=== PATIENT | female | born 1950 | race Caucasian/White ===

== ENCOUNTER 2019-05-18 07:02 | Outpatient (CLI) | payer MEDICARE, SELFPAY ==
[2019-05-18 07:16] LABS: Basophils Absolute Auto 0.04 K/mm3 (0.00-0.10); Basophils Percent Auto 0.6 % (0.0-1.0); Eosinophils Absolute Auto 0.19 K/mm3 (0.02-0.50); Eosinophils Percent Auto 2.8 % (1.0-6.0); Hematocrit 38.3 % (35.0-42.0); Immature Granulocyte Absolute 0.02 K/mm3 (0.00-0.00); Immature Granulocyte Percent A 0.3 % (0.0-0.0); Lymphocytes Percent Auto 30.6 % (18.0-42.0); Mean Corpuscular HGB Conc 31.3 g/dL (32.0-36.0); Mean Corpuscular Hemoglobin 27.8 pg (27.0-31.0); Mean Corpuscular Volume 88.7 fL (78.0-102.0); Monocytes Absolute Auto 0.58 K/mm3 (0.10-0.90); Monocytes Percent Auto 8.4 % (2.0-11.0); Neutrophils Absolute Auto 3.9 K/mm3 (1.7-7.2); Neutrophils Percent Auto 57.3 % (50.0-70.0); Platelet Count Result 206 K/mm3 (150-420); Red Blood Count 4.32 M/mm3 (4.20-5.40); Red Cell Distribution Width 12.8 % (11.6-14.4); White Blood Count 6.9 K/mm3 (4.8-10.8)
[2019-05-18 07:17] LABS: Add Urine Microscopic? YES; Appearance Urine Sl Cloudy (Clear); Bilirubin Urine Negative (Negative); Blood Urine Negative (Negative); Color Urine Yellow (Yellow); Glucose Urine UA Negative (Negative); Ketones Urine Negative (Negative); Leukocyte Esterase Ur Trace LEU/UL (Negative); Nitrate Urine Negative (Negative); Protein Urine Negative (Negative); Urobilinogen Urine 0.2 mg/dL (0.2-1.0)
[2019-05-18 07:32] LABS: RBC Urine 0-2 /hpf (0-2); WBC Urine 0-3 /hpf (0-3)
[2019-05-18 07:33] LABS: Bacteria Urine Trace /hpf; Squamous Epithelial Cell Urine Moderate /hpf (Few)
[2019-05-18 08:24] LABS: Albumin Level 3.8 g/dL (3.4-5.0); Anion Gap 12.5 mmol/L (7-16); Blood Urea Nitrogen 31 mg/dL (7-18); Calcium 8.6 mg/dL (8.5-10.1); Carbon Dioxide 28 mmol/L (21-32); Chloride 108 mmol/L (98-108); Estimated Glomerular Filt Rate > 60; Glucose 96 mg/dL (70-99); Osmolality Calculated 304 mOsm/kg (285-295); Potassium 4.5 mmol/L (3.5-5.1); Sodium 144 mmol/L (136-145)
[2019-05-18 08:36] LABS: Alanine Aminotransferase 19 U/L (14-59); Alkaline Phosphatase 79 U/L (46-116); Aspartate Amino Transferase 14 U/L (15-37); Bilirubin,Total 0.2 mg/dL (0.00-1.00); Cholesterol 179 mg/dL (0-200); HDL Direct 47 mg/dL (40-60); LDL Cholesterol Calculated 120 mg/dL (<130); Total Protein 6.7 g/dL (6.4-8.2); Triglycerides 61 mg/dL (0-150)
== END 2019-05-18 07:03 | disposition home or self-care (01) ==
LOC: CHSLAB 07:04
PROVIDERS: PCP Internal Medicine; Visit Provider Internal Medicine
DX: E78.00 Pure hypercholesterolemia, unspecified (principal); I10 Essential (primary) hypertension
CPT/HCPCS: 36415; 80053; 80061; 81001; 85025

== ENCOUNTER 2019-10-09 12:48 | Outpatient (CLI) | payer MEDICARE, BC, SELFPAY ==
[2019-10-09 13:20] VITALS: BP 138/80; PULSE 88; RESP 16; TEMP 36.8; O2SAT 98
[2019-10-09] MEDS: ERTAPENEM 1 GM/NS 50 ML 1 GM/50 ML BAG IVPB (13:46)
[2019-10-09] MEDS: HEPARIN SOD FLUSH 500 UNITS/5 ML SYRINGE IV PUSH (13:49)
--- NOTE | 2019-10-09 14:25 | PC.NURSE ---
Patient tolerated iv ertapenem IV infusion daily for 14 days. This was day #1. No concerns. Educated on medication and midline that is already established. Safe exit of hospital.
== END 2019-10-09 12:49 | disposition home or self-care (01) ==
PROVIDERS: PCP Internal Medicine; Visit Provider Internal Medicine Infectious Disease
DX: A41.9 Sepsis, unspecified organism (principal)
CPT/HCPCS: 96365; J1335

== ENCOUNTER 2019-10-10 12:52 | Outpatient (CLI) | payer MEDICARE, SELFPAY ==
[2019-10-10] MEDS: ERTAPENEM 1 GM/NS 50 ML 1 GM/50 ML BAG IVPB (14:08)
[2019-10-10] MEDS: HEPARIN SOD FLUSH 500 UNITS/5 ML SYRINGE IV PUSH (14:10)
== END 2019-10-10 12:53 | disposition home or self-care (01) ==
PROVIDERS: PCP Internal Medicine
DX: A41.9 Sepsis, unspecified organism (principal)
CPT/HCPCS: 96365; J1335

== ENCOUNTER 2019-10-11 12:41 | Outpatient (CLI) | payer MEDICARE, SELFPAY ==
[2019-10-11] MEDS: HEPARIN SOD FLUSH 500 UNITS/5 ML SYRINGE IV PUSH (13:20)
[2019-10-11] MEDS: ERTAPENEM 1 GM/NS 50 ML 1 GM/50 ML BAG IVPB (13:26)
== END 2019-10-11 12:42 | disposition home or self-care (01) ==
PROVIDERS: PCP Internal Medicine
DX: A41.9 Sepsis, unspecified organism (principal)
CPT/HCPCS: 96365; J1335

== ENCOUNTER 2019-10-12 12:47 | Outpatient (CLI) | payer MEDICARE, SELFPAY ==
[2019-10-12] MEDS: ERTAPENEM 1 GM/NS 50 ML 1 GM/50 ML BAG IVPB (13:10)
[2019-10-12] MEDS: HEPARIN SOD FLUSH 500 UNITS/5 ML SYRINGE IV PUSH (13:45)
== END 2019-10-12 12:48 | disposition home or self-care (01) ==
PROVIDERS: PCP Internal Medicine
DX: Z41.9 Encounter for procedure for purposes other than remedying health state, unspecified (principal)
CPT/HCPCS: 96365; J1335

== ENCOUNTER 2019-10-13 12:41 | Outpatient (CLI) | payer MEDICARE, SELFPAY ==
[2019-10-13] MEDS: ERTAPENEM 1 GM/NS 50 ML 1 GM/50 ML BAG IVPB (13:01)
== END 2019-10-13 12:42 | disposition home or self-care (01) ==
PROVIDERS: PCP Internal Medicine
DX: A41.9 Sepsis, unspecified organism (principal)
CPT/HCPCS: 96365; J1335

== ENCOUNTER 2019-10-14 12:41 | Outpatient (CLI) | payer MEDICARE, SELFPAY ==
[2019-10-14] MEDS: ERTAPENEM 1 GM/NS 50 ML 1 GM/50 ML BAG IVPB (13:09)
[2019-10-14] MEDS: HEPARIN SOD FLUSH 500 UNITS/5 ML SYRINGE IV PUSH (13:10)
[2019-10-14 13:14] VITALS: BP 134/70; PULSE 72; RESP 14; TEMP 36.6; O2SAT 97
--- NOTE | 2019-10-14 15:01 | PC.NURSE ---
1245 Here for IV Ertapenem antibiotic. Midline IV dressing change. Site good. IV Ertapenem administered. Tolerated well. Safe exit of hospital.
== END 2019-10-14 12:42 | disposition home or self-care (01) ==
PROVIDERS: PCP Internal Medicine
DX: A41.9 Sepsis, unspecified organism (principal)
CPT/HCPCS: 96365; J1335

== ENCOUNTER 2019-10-15 12:37 | Outpatient (CLI) | payer MEDICARE, SELFPAY ==
[2019-10-15] MEDS: ERTAPENEM 1 GM/NS 50 ML 1 GM/50 ML BAG IVPB (12:59)
[2019-10-15] MEDS: HEPARIN SOD FLUSH 500 UNITS/5 ML SYRINGE IV PUSH (12:59)
== END 2019-10-15 12:38 | disposition home or self-care (01) ==
LOC: CHSTREATRM 12:40
PROVIDERS: PCP Internal Medicine
DX: A41.9 Sepsis, unspecified organism (principal)
CPT/HCPCS: 96365; J1335

== ENCOUNTER 2019-10-16 12:46 | Outpatient (CLI) | payer MEDICARE, SELFPAY ==
[2019-10-16] MEDS: HEPARIN SOD FLUSH 500 UNITS/5 ML SYRINGE IV PUSH (13:11)
[2019-10-16] MEDS: ERTAPENEM 1 GM/NS 50 ML 1 GM/50 ML BAG IVPB (13:11)
== END 2019-10-16 12:47 | disposition home or self-care (01) ==
PROVIDERS: PCP Internal Medicine
DX: A41.9 Sepsis, unspecified organism (principal)
CPT/HCPCS: 96365; J1335

== ENCOUNTER 2019-10-17 07:31 | Outpatient (CLI) | payer MEDICARE, SELFPAY ==
[2019-10-17] MEDS: HEPARIN SOD FLUSH 500 UNITS/5 ML SYRINGE IV PUSH (12:53)
[2019-10-17] MEDS: ERTAPENEM 1 GM/NS 50 ML 1 GM/50 ML BAG IVPB (12:53)
[2019-10-17 12:54] VITALS: BP 129/80; PULSE 68; RESP 16; TEMP 36.6; O2SAT 97
--- NOTE | 2019-10-17 13:14 | PC.NURSE ---
Tolerated daily IV antibiotic (see MAR) well. No concerns. Midline flushed and intact. Safe exit of hospital.
== END 2019-10-17 07:32 | disposition home or self-care (01) ==
PROVIDERS: PCP Internal Medicine
DX: A41.9 Sepsis, unspecified organism (principal)
CPT/HCPCS: 96365; J1335

== ENCOUNTER 2019-10-18 10:07 | Outpatient (CLI) | payer MEDICARE, SELFPAY ==
[2019-10-18 12:52] VITALS: BP 119/70; PULSE 68; RESP 14; TEMP 36.6; O2SAT 97
[2019-10-18] MEDS: ERTAPENEM 1 GM/NS 50 ML 1 GM/50 ML BAG IVPB (12:52)
[2019-10-18] MEDS: HEPARIN SOD FLUSH 500 UNITS/5 ML SYRINGE IV PUSH (13:21)
--- NOTE | 2019-10-18 13:21 | PC.NURSE ---
Patient here for daily IV antibiotic infusion (SEE MAR). No concerns voiced. Tolerated infusion well. Safe exit of hospital.
== END 2019-10-18 10:08 | disposition home or self-care (01) ==
DX: A41.9 Sepsis, unspecified organism (principal)
CPT/HCPCS: 96365; J1335

== ENCOUNTER 2019-10-19 12:38 | Outpatient (CLI) | payer MEDICARE, SELFPAY ==
[2019-10-19 12:48] VITALS: BP 114/64; PULSE 72; RESP 18; TEMP 36.7
[2019-10-19] MEDS: ERTAPENEM 1 GM/NS 50 ML 1 GM/50 ML BAG IVPB (13:00)
--- NOTE | 2019-10-19 13:49 | PC.NURSE ---
Here for daily IV antibiotic (see MAY). No concerns voiced. Tolerated infusion well. Safe exit of hospita. Call to Dr Arias Infection control to see if can pull midline 10/21/19 after 14 th and last dose of IV antibiotic. They will call us back with answer by .
== END 2019-10-19 12:39 | disposition home or self-care (01) ==
LOC: CHSTREATRM 12:39
PROVIDERS: PCP Internal Medicine; Visit Provider Internal Medicine Infectious Disease
DX: A41.9 Sepsis, unspecified organism (principal)
CPT/HCPCS: 96365; J1335

== ENCOUNTER 2019-10-20 12:38 | Outpatient (CLI) | payer MEDICARE, SELFPAY ==
[2019-10-20] MEDS: ERTAPENEM 1 GM/NS 50 ML 1 GM/50 ML BAG IVPB (13:06)
[2019-10-20] MEDS: HEPARIN SOD FLUSH 500 UNITS/5 ML SYRINGE IV PUSH (13:38)
== END 2019-10-20 12:39 | disposition home or self-care (01) ==
LOC: CHSTREATRM 12:40
PROVIDERS: PCP Internal Medicine; Visit Provider Internal Medicine Infectious Disease
DX: A41.9 Sepsis, unspecified organism (principal)
CPT/HCPCS: 96365; J1335

== ENCOUNTER 2019-10-21 12:35 | Outpatient (CLI) | payer MEDICARE, SELFPAY ==
[2019-10-21] MEDS: HEPARIN SOD FLUSH 500 UNITS/5 ML SYRINGE IV PUSH (12:57)
[2019-10-21] MEDS: ERTAPENEM 1 GM/NS 50 ML 1 GM/50 ML BAG IVPB (12:57)
[2019-10-21 13:00] VITALS: BP 118/63; PULSE 68; RESP 18; TEMP 36.6; O2SAT 97
--- NOTE | 2019-10-21 14:05 | PC.NURSE ---
[id number] Patient here for daily DAy 13 of 14 IV antibiotic therapy in left upper mid line. No concerns voiced. Tolerated IV infusion well. Safe exit of hospital.
== END 2019-10-21 12:36 | disposition home or self-care (01) ==
LOC: CHSTREATRM 12:37
PROVIDERS: PCP Internal Medicine; Visit Provider Internal Medicine Infectious Disease
DX: A41.9 Sepsis, unspecified organism (principal)
CPT/HCPCS: 96365; J1335

== ENCOUNTER 2019-10-22 12:36 | Outpatient (CLI) | payer MEDICARE, SELFPAY ==
[2019-10-22] MEDS: ERTAPENEM 1 GM/NS 50 ML 1 GM/50 ML BAG IVPB (12:50)
[2019-10-22 12:57] VITALS: BP 130/70; PULSE 68; RESP 14; TEMP 36.6; O2SAT 98
--- NOTE | 2019-10-22 13:35 | PC.NURSE ---
Completed 14 day course of daily IV antibiotic therapy. No concerns voiced. Tolerated well. Mid line pulled. Safe exit of hospital.
== END 2019-10-22 12:37 | disposition home or self-care (01) ==
PROVIDERS: PCP Internal Medicine; Visit Provider Internal Medicine Infectious Disease
DX: A41.9 Sepsis, unspecified organism (principal)
CPT/HCPCS: 96365; J1335